=== PATIENT | female | born 1990 | race Caucasian/White ===

== ENCOUNTER 2021-05-11 11:22 | Emergency (ER) | payer MEDICARE, BC ==
[~2021-05-11] VITALS: Ht 160 cm; Wt 47.6 kg
[2021-05-11 12:09] LABS: HEMATOCRIT 31.8 % (31.2-41.9); MEAN CORPUSCULAR HEMOGLOBIN 30.9 uug (24.7-32.8); MEAN CORPUSCULAR VOLUME 91.7 fL (75.5-95.3); PLATELET COUNT (AUTO) 517 K/uL (179-408)
[2021-05-11] MEDS ORDERED: diphenhydrAMINE 50 MG/1 ML VIAL ONE (12:11)
[2021-05-11] MEDS ORDERED: ONDANSETRON 4 MG/2 ML VIAL ONE ×2 (12:11→13:52)
[2021-05-11] MEDS: IV NORMAL SALINE 1000 ML BAG IV ONE (12:11)
[2021-05-11] MEDS ORDERED: HYDROMORPHONE 1 MG/1 ML DISP.SYRIN ONE ×2 (12:11→13:52)
[2021-05-11] MEDS: ONDANSETRON 4 MG/2 ML VIAL IV ONE ×2 (12:14→13:51)
[2021-05-11] MEDS: diphenhydrAMINE 50 MG/1 ML VIAL IV ONE (12:16)
[2021-05-11] MEDS: HYDROMORPHONE 1 MG/1 ML DISP.SYRIN IV ONE ×2 (12:20→13:51)
[2021-05-11 12:21] LABS: CARBON DIOXIDE 24 mmol/L (21-32); CHLORIDE 106 mmol/L (98-107); CREATININE 0.5 mg/dL (0.6-1.3); GLUCOSE 114 mg/dL (74-106); POTASSIUM 3.9 mmol/L (3.5-5.1); UREA NITROGEN, BLOOD 7 mg/dL (7-18)
[2021-05-11 12:26] LABS: ALANINE AMINOTRANSFERASE 17 U/L (14-59); ALKALINE PHOSPHATASE 54 U/L (50-136); ASPARTATE AMINOTRANSFERASE 15 U/L (15-37); BILIRUBIN,DIRECT 0.1 mg/dL (0.0-0.2); BILIRUBIN,TOTAL 0.2 mg/dL (0.2-1.0); LIPASE 114 U/L (73-393); TOTAL PROTEIN, SERUM 7.1 g/dL (6.4-8.2)
--- NOTE | 2021-05-11 12:47 | NUR ---
Patient is resting comfortably in bed with eyes closed.
--- NOTE | 2021-05-11 13:03 | NUR ---
Patient is back from CT scan in same condition, +nausea while in CT with small emesis?, notified
--- NOTE | 2021-05-11 14:02 | NUR ---
IV removed. Catheter intact and site benign. Pressure and 4x4 gauze applied to site. No bleeding noted. Patient is for discharged to home. Patient said that she feels a" tad better." and will call [employer] for her ride. Written and verbal after care instructions given. Patient verbalized understanding and compliance of instructions. Stressed follow up with primary doctor & GI doctor or return to ER for worsening s/s.
== END 2021-05-11 14:02 | disposition home or self-care (01) ==
LOC: ER 11:22
DX: K31.84 Gastroparesis (principal); Z88.8 Allergy status to other drugs, medicaments and biological substances
CPT/HCPCS: 36415; 74176; 80048; 80076; 83690; 84702; 85025; 96361; 96374; 96375; 96376; 99284; J1170 ×2; J1200; J2405 ×2; A4663; J7030